=== PATIENT | female | born 1995 | race Caucasian/White ===

== ENCOUNTER 2019-12-26 13:29 | Outpatient (CLI) | payer OTHER | END 2019-12-26 13:30 | disposition home or self-care (01) | LOC: COV 13:29 | PROVIDERS: ATTEND Family Medicine | DX: R50.9 Fever, unspecified (principal); Z20.828 Contact with and (suspected) exposure to other viral communicable diseases; R05 Cough; M79.10 Myalgia, unspecified site; R53.83 Other fatigue; J02.9 Acute pharyngitis, unspecified; R43.9 Unspecified disturbances of smell and taste; R09.81 Nasal congestion ==